=== PATIENT | male | born 1965 | race Caucasian/White ===

== ENCOUNTER 2017-04-27 05:47 | Day surgery (SDC) | payer BC ==
[~2017-04-27] VITALS: Ht 170.2 cm; Wt 84.4 kg
[2017-04-27] MEDS ORDERED: fentaNYL INJECTION 100 MCG/2 ML AMP IVP STA (05:57)
[2017-04-27] MEDS ORDERED: ONDANSETRON 4 MG/2 ML (SDV) Z0FRAN IVP ONE (06:00)
[2017-04-27] MEDS ORDERED: PANTOPRAZOLE 40 MG/10 ML (PROTONIX) VIAL IV ONE (06:00)
--- NOTE | 2017-04-27 06:04 | ED Abdominal Pain ---
General Chief Complaint: Abdominal/GI Problems Stated Complaint: ACUTE UPPER BACK PAIN Source of Information: Patient (INCOL DURHAM K DO) History of Present Illness Time Seen By Provider: 05:50 Initial Comments PT ARRIVES VIA POV FROM HOME C/O SEVERE EPIGASTRIC PAIN THAT RADIATES ALL THE WAY AROUND TO BACK--WOKE HIM UP AT 0400 C/O NAUSEA AND HAS VOMITED X 2 + SWEATS DOESN'T FEEL SHORT OF BREATH, BUT IS HYPERVENTILATING DUE TO PAIN HAD SIMILAR 2 NIGHTS AGO--WOKE HIM UP, THEN WENT AWAY AFTER AN HOUR HAD ROUTINE SCREENING/ [facility] AND EKG DONE LAST WEEK AND WAS ALL NORMAL. (AGUS,NICOL K DO) Allergies and Home Medications Allergies Coded Allergies: Penicillins (Verified Allergy, Unknown, 04/27/17) Home Medications No Active Prescriptions or Reported Meds Review of Systems Constitutional: see HPI, diaphoresis Respiratory: See HPI Cardiovascular: See HPI Gastrointestinal: See HPI Genitourinary: No Symptoms Reported Musculoskeletal: see HPI Skin: no symptoms reported Psychiatric/Neurological: No Symptoms Reported Endocrine: No Symptoms Reported Hematologic/Lymphatic: No Symptoms Reported (AGUSNICOL K DO) Past Chmqgge-Dbamos-Njgdnm Hx Patient Social History Alcohol Use: Denies Use Recreational Drug Use: No Smoking Status: Never a Smoker Recent Foreign Travel: No Contact w/Someone Who Travel: No (AGUS,NICOL K DO) Surgeries HX Surgeries: Yes Surgeries: Appendectomy (AGUS,NICOL K DO) Respiratory Hx Respiratory Disorders: No (AGUS,NICOL K DO) Cardiovascular Hx Cardiac Disorders: No (AGUS,NICOL K DO) Neurological Hx Neurological Disorders: No (AGUS,NICOL K DO) Genitourinary Hx Genitourinary Disorders: No (AGUS,NICOL K DO) Gastrointestinal Hx Gastrointestinal Disorders: Yes Gastrointestinal Disorders: Diverticulosis (AGUS,NICOL K DO) Musculoskeletal Hx Musculoskeletal Disorders: No (AGUS,NICOL K DO) Endocrine Hx Endocrine Disorders: No (AGUS,NICOL K DO) HEENT HX ENT Disorders: No (AGUS,NICOL K DO) Cancer Hx Cancer: No (AGUS,NICOL K DO) Psychosocial Hx Psychiatric Problems: No (AGUS,NICOL K DO) Integumentary HX Skin/Integumentary Disorder: No (AGUS,NICOL K DO) Blood Transfusions Hx Blood Disorders: No (AGUS,NICOL K DO) Physical Exam Vital Signs VS - Last 72 Hours, by Label 04/27/17 04/27/17 05:57 06:27 Temp 97.8 Pulse 70 62 Resp 30 14 B/P (MAP) 180/114 178/103 Pulse Ox 100 100 O2 Delivery Room Air (GAVIN MULLIGAN MD) Vital Signs Capillary Refill : (NICOL DURHAM DO) General Appearance: mild distress (HYPERVENTILATING, LOOKS UNCOMFORTABLE-- RESTLESS, SOMEWHAT ANXIOUS DUE TO PAIN), other Respiratory: normal breath sounds, no respiratory distress, no accessory muscle use Cardiovascular: normal peripheral pulses, regular rate, rhythm, no edema, no JVD, no murmur Gastrointestinal: normal bowel sounds, soft, no organomegaly, no pulsatile mass , tenderness (MILD EPIGASTRIC TENDERNESS) Neurologic/Psychiatric: clinician oncology II-XII nml as tested, no motor/sensory deficits, alert, oriented x 3 Skin: normal color, warm/dry (NICOL DURHAM DO) Progress/Results/Core Measures Results/Orders Lab Results Laboratory Tests Test 04/27/17 06:00 04/27/17 06:17 Range/Units White Blood Count 5.9 4.3-11.0 10^3/uL Red Blood Count 5.16 4.35-5.85 10^6/uL Hemoglobin 16.1 13.3-17.7 G/DL Hematocrit 46 40-54 % Mean Corpuscular Volume 88 80-99 FL Mean Corpuscular Hemoglobin 31 25-34 PG Mean Corpuscular Hemoglobin Concent 35 32-36 G/DL Red Cell Distribution Width 12.6 10.0-14.5 % Platelet Count 231 130-400 10^3/uL Mean Platelet Volume 11.4 H 7.4-10.4 FL Neutrophils (%) (Auto) 43 42-75 % Lymphocytes (%) (Auto) 43 12-44 % Monocytes (%) (Auto) 9 0-12 % Eosinophils (%) (Auto) 4 0-10 % Basophils (%) (Auto) 1 0-10 % Neutrophils # (Auto) 2.5 1.8-7.8 X 10^3 Lymphocytes # (Auto) 2.5 1.0-4.0 X 10^3 Monocytes # (Auto) 0.5 0.0-1.0 X 10^3 Eosinophils # (Auto) 0.3 0.0-0.3 10^3/uL Basophils # (Auto) 0.1 0.0-0.1 10^3/uL Prothrombin Time 12.5 12.2-14.7 SEC INR Comment 1.0 0.8-1.4 Activated Partial Thromboplast Time 25 24-35 SEC Sodium Level 144 135-145 MMOL/L Potassium Level 3.7 3.6-5.0 MMOL/L Chloride Level 109 H 98-107 MMOL/L Carbon Dioxide Level 23 21-32 MMOL/L Anion Gap 12 5-14 MMOL/L Blood Urea Nitrogen 14 7-18 MG/DL Creatinine 1.24 0.60-1.30 MG/DL Estimat Glomerular Filtration Rate > 60 BUN/Creatinine Ratio 11 Glucose Level 154 H 70-105 MG/DL Calcium Level 9.7 8.5-10.1 MG/DL Magnesium Level 2.5 H 1.8-2.4 MG/DL Total Bilirubin 0.3 0.1-1.0 MG/DL Aspartate Amino Transf (AST/SGOT) 23 5-34 U/L Alanine Aminotransferase (ALT/SGPT) 55 0-55 U/L Alkaline Phosphatase 44 40-136 U/L Total Creatine Kinase 73 30-200 U/L Creatine Kinase MB 1.1 <6.6 NG/ML Troponin I < 0.30 <0.30 NG/ML B-Type Natriuretic Peptide < 10.0 <100.0 PG/ML Total Protein 7.7 6.4-8.2 G/DL Albumin 4.2 3.2-4.5 G/DL Amylase Level 54 25-125 U/L Lipase 26 8-78 U/L Urine Color YELLOW Urine Clarity CLEAR Urine pH 6 5-9 Urine Specific [place] 1.025 H 1.016-1.022 Urine Protein 2+ H NEGATIVE Urine Glucose (UA) 1+ H NEGATIVE Urine Ketones 1+ H NEGATIVE Urine Nitrite NEGATIVE NEGATIVE Urine Bilirubin NEGATIVE NEGATIVE Urine Urobilinogen NORMAL NORMAL MG/DL Urine Leukocyte Esterase NEGATIVE NEGATIVE Urine RBC (Auto) NEGATIVE NEGATIVE Urine RBC NONE /HPF Urine WBC NONE /HPF Urine Squamous Epithelial Cells NONE /HPF Urine Crystals NONE /LPF Urine Bacteria NEGATIVE /HPF Urine Casts NONE /LPF Urine Hyaline Casts RARE /LPF Urine Mucus SMALL H /LPF Urine Culture Indicated NO (BRUEGGEMANN,GAVIN T MD) My Orders Orders - GAVIN MULLIGAN MD Fentanyl Injection (Sublimaze Injection (04/27/17 06:15) Ns Iv 1000 Ml (Sodium Chloride 0.9%) (04/27/17 06:17) Us Gallbladder [id number] (04/27/17 06:33) (GAVIN MULLIGAN MD) Medications Given in ED Current Medications Medications Dose Ordered Sig/Sebastien Route Start Time Stop Time Status Last Admin Dose Admin Fentanyl Citrate 100 mcg ONCE ONCE IVP 04/27/17 06:15 04/27/17 06:16 DC 04/27/17 06:21 100 MCG Ondansetron HCl 4 mg ONCE ONCE IVP 04/27/17 06:00 04/27/17 06:01 DC 04/27/17 06:03 4 MG Pantoprazole 40 mg ONCE ONCE IV 04/27/17 06:00 04/27/17 06:01 DC 04/27/17 06:03 40 MG Sodium Chloride 1,000 ml @ 0 mls/hr Q0M ONCE IV 04/27/17 06:17 04/27/17 06:18 DC 04/27/17 06:21 0 MLS/HR (GAVIN MULLIGAN MD) Vital Signs/I&O Vital Sign - Last 12Hours 04/27/17 04/27/17 05:57 06:27 Temp 97.8 Pulse 70 62 Resp 30 14 B/P (MAP) 180/114 178/103 Pulse Ox 100 100 O2 Delivery Room Air (GAVIN MULLIGAN MD) Progress Note : Progress Note 0600--CARE TURNED OVER TO DR. MULLIGAN, ALL STUDIES PENDING (NICOL DURHAM DO) Progress Note #1: Time: 06:15 Progress Note Care of this patient was assumed from Dr. Durham. Patient was re-examined. Patient is in moderate distress from pain. He experienced modest reduction in pain with his initial dose of fentanyl. An additional dose of fentanyl has been ordered. Patient also received Zofran and Pepcid. Patient reports his pain is more lateralized to the right upper quadrant after receiving fentanyl. On reexamination he has clear breath sounds. He has tenderness with positive Conway sign in the right upper quadrant. UA has been provided. If urine is clear of blood, ultrasound will be ordered. If blood is found in the urine, CT for stone search will be obtained. Differential diagnosis at this time includes but is not limited to biliary colic, ureteral stone, duodenal ulcer, etc. Patient reports his last meal of solid food was stirfry at 23:00. He has had water as recently as one hour prior to presentation. Patient also reports he had a similar episode of brief less intense pain a couple of days ago that also woken from sleep. Progress Note #2: Time: Progress Note Pain is well controlled at 12/08. Patient is now in US. (GAVIN MULLIGAN MD) ECG Initial ECG Impression Time: 05:54 Initial ECG Rate: 67 Initial ECG Rhythm: Normal Sinus Initial ECG Comparisson: No Previous ECG Available (NICOL DURHAM DO) Diagnostic Imaging Diagonstic Imaging: Xray Plain Films/CT/US/NM/MRI: chest Comments Chest x-ray viewed by me and report reviewed. No acute abnormalities appreciated. Diagonstic Imaging: Ultrasound Plain Films/CT/US/NM/MRI: abdomen Comments NAME: RIZWANA AU [facility] REC#: [id number] PT STATUS: REG ER : 1965 PHYSICIAN: GAVIN MULLIGAN MD ADMIT DATE: 04/27/17/ER Draft Date of Exam:04/27/17 US GALLBLADDER [id number] PROCEDURE: US Gallbladder. TECHNIQUE: Multiple real-time grayscale images were obtained over the right upper quadrant in various projections. INDICATION: Right upper quadrant pain The liver parenchyma is homogenous with normal echotexture. There is sludge layering in the dependent portion of the gallbladder. Gallbladder wall is not thickened. Common duct is not dilated. Pancreas is obscured by bowel gas. Right kidney appears normal. There is no ascites. IMPRESSION: Patient has a large amount of sludge present in the gallbladder. Dictated on workstation # [id number] Dict: 04/27/17 0749 Trans: 04/27/17 0751 [facility] [id number] Interpreted by: WENDY PATHAK (GAVIN MULLIGAN MD) Departure Communication Time/Spoke to Admitting Phy: 07:25 Communication Case reviewed with Dr. Rivas. There were sludge and stones layered in the gallbladder with sludge in the neck per industrial safety and health technician's report. Dr. Rivas would like to work the patient into the OR schedule for laparoscopic cholecystectomy. We are to hold him in the emergency room until the surgical crew takes him to outpatient surgery. (GAVIN MULLIGAN MD) Impression Impression: Primary Impression: Cholelithiasis Qualified Codes: K80.21 - Calculus of gallbladder without cholecystitis with obstruction Additional Impression: Right upper quadrant pain Disposition: ADMITTED INPATIENT Condition: Improved Departure-Patient Inst. Decision time for Depature: 07:20 (GAVIN MULLIGAN MD) Referrals: CHELSEA RIVAS MD (PCP) Primary Care Physician Scripts No Active Prescriptions or Reported Meds NICOL DURHAM DO April 27, 2017 06:04 GAVIN MULLIGAN MD April 27, 2017 06:23
[2017-04-27 06:05] LABS: BASOPHILS # (AUTO) 0.1 10^3/uL (0.0-0.1); BASOPHILS % (AUTO) 1 % (0-10); EOSINOPHILS # (AUTO) 0.3 10^3/uL (0.0-0.3); EOSINOPHILS % (AUTO) 4 % (0-10); LYMPHOCYTES # (AUTO) 2.5 X 10^3 (1.0-4.0); LYMPHOCYTES % (AUTO) 43 % (12-44); MEAN CORPUSCULAR HEMOGLOBIN 31 PG (25-34); MEAN CORPUSCULAR HGB CONC 35 G/DL (32-36); MEAN CORPUSCULAR VOLUME 88 FL (80-99); MEAN PLATELET VOLUME 11.4 FL (7.4-10.4); MONOCYTES # (AUTO) 0.5 X 10^3 (0.0-1.0); MONOCYTES % (AUTO) 9 % (0-12); NEUTROPHILS # (AUTO) 2.5 X 10^3 (1.8-7.8); NEUTROPHILS % (AUTO) 43 % (42-75); PLATELET COUNT 231 10^3/uL (130-400); RED BLOOD COUNT 5.16 10^6/uL (4.35-5.85); RED CELL DISTRIBUTION WIDTH 12.6 % (10.0-14.5); WHITE BLOOD COUNT 5.9 10^3/uL (4.3-11.0)
[2017-04-27] MEDS ORDERED: fentaNYL INJECTION 100 MCG/2 ML AMP IVP ONE (06:15)
[2017-04-27] MEDS ORDERED: NS IV 1000 ML 1,000 ML IV ONE (06:17)
[2017-04-27 06:18] LABS: PROTHROMBIN TIME PATIENT 12.5 SEC (12.2-14.7)
[2017-04-27 06:22] LABS: BILIRUBIN,URINE NEGATIVE (NEGATIVE); KETONES,URINE 1+ (NEGATIVE); LEUKOCYTE ESTERASE ,URINE NEGATIVE (NEGATIVE); NITRITE,URINE NEGATIVE (NEGATIVE); PH,URINE 6 (5-9); PROTEIN,URINE 2+ (NEGATIVE); UROBILINOGEN,URINE NORMAL (NORMAL)
[2017-04-27 06:29] LABS: HYALINE CASTS, URINE RARE /LPF
--- NOTE | 2017-04-27 06:32 | Diagnostic Imaging Report ---
INDICATION: Epigastric pain. Portable chest 6:08 AM FINDINGS: Heart size and pulmonary vascularity are normal. Lungs are clear. There are no effusions or pneumothoraces. IMPRESSION: Negative chest. Dictated by: Dictated on workstation # [id number]
[2017-04-27 06:33] LABS: ALANINE AMINOTRANSFERASE 55 U/L (0-55); ALBUMIN 4.2 G/DL (3.2-4.5); AMYLASE 54 U/L (25-125); ANION GAP 12 MMOL/L (5-14); ASPARTATE AMINO TRANSFERASE 23 U/L (5-34); BILIRUBIN,TOTAL 0.3 MG/DL (0.1-1.0); BLOOD UREA NITROGEN 14 MG/DL (7-18); BUN/CREATININE RATIO 11; CALCIUM 9.7 MG/DL (8.5-10.1); CARBON DIOXIDE 23 MMOL/L (21-32); CHLORIDE 109 MMOL/L (98-107); CREATINE KINASE 73 U/L (30-200); CREATININE SERUM 1.24 MG/DL (0.60-1.30); GFR ESTIMATED > 60; GLUCOSE 154 MG/DL (70-105); LIPASE 26 U/L (8-78); MAGNESIUM 2.5 MG/DL (1.8-2.4); POTASSIUM 3.7 MMOL/L (3.6-5.0); SODIUM 144 MMOL/L (135-145); TOTAL PROTEIN 7.7 G/DL (6.4-8.2)
[2017-04-27 06:40] LABS: TROPONIN I < 0.30 NG/ML (<0.30)
--- NOTE | 2017-04-27 07:52 | Diagnostic Imaging Report ---
PROCEDURE: US Gallbladder. TECHNIQUE: Multiple real-time grayscale images were obtained over the right upper quadrant in various projections. INDICATION: Right upper quadrant pain The liver parenchyma is homogenous with normal echotexture. There is sludge layering in the dependent portion of the gallbladder. Gallbladder wall is not thickened. Common duct is not dilated. Pancreas is obscured by bowel gas. Right kidney appears normal. There is no ascites. IMPRESSION: Patient has a large amount of sludge present in the gallbladder. Dictated by: Dictated on workstation # [id number]
[2017-04-27] MEDS ORDERED: proPOfol 200 MG/20 ML (DIPRIVAN) VIAL IV ONE (08:25)
[2017-04-27] MEDS ORDERED: LIDOCAINE PF 2% 5 ML (XYLOCAINE) VIAL ONE (08:25)
[2017-04-27] MEDS ORDERED: SEVOFLURANE (ULTANE) 15 ML INHAL SOLN ONE ×4 (08:25→11:18)
[2017-04-27] MEDS ORDERED: fentaNYL INJECTION 100 MCG/2 ML AMP ONE ×2 (08:25→11:17)
[2017-04-27] MEDS ORDERED: LACTATED RINGERS 1,000 ML IV ONE ×2 (08:25→11:07)
[2017-04-27] MEDS ORDERED: MIDAZOLAM 2 MG/2 ML (VERSED) VIAL ONE (08:27)
[2017-04-27] MEDS ORDERED: ONDANSETRON 4 MG/2 ML (SDV) Z0FRAN ONE ×2 (08:30→11:29)
[2017-04-27] MEDS ORDERED: BUP/EPI 0.25% 1:200,000 (MARCAINE) 30 ML VIAL ONE ×2 (08:35→09:23)
--- NOTE | 2017-04-27 08:44 | Progress Note-Pre Operative ---
Pre-Operative Progress Note H&P Reviewed The H&P was reviewed, patient examined and no changes noted. Date H&P Reviewed: April 27, 2017 Time H&P Reviewed: 08:44 Pre-Operative Diagnosis: Acute cholecystitis CHELSEA RIVAS MD April 27, 2017 8:44 am
--- NOTE | 2017-04-27 08:44 | History & Physicial ---
History of Present Illness History of Present Illness Reason for visit/HPI RUQ pain radiating to the back since 4 am . US shows sludge in the GB and evidence of early acute cholecystitis Date of Admission I consulted on this patient on 04/27/17 08:38 Attending Physician Chelsea Rivas MD Admitting Physician Leanne Ghosh,Dnp Consult Allergies and Home Medications Allergies Coded Allergies: Penicillins (Verified Allergy, Unknown, 04/27/17) Home Medications No Active Prescriptions or Reported Meds Past Aadujbl-Nanrpo-Konmba Hx Patient Social History Marrital Status: Employed/Student: self-employed Alcohol Use: Denies Use Recreational Drug Use: No Smoking Status: Never a Smoker Recent Foreign Travel: No Contact w/other who traveled: No Recent Infectious Disease Expo: No Surgeries HX Surgeries: Yes Surgeries: Appendectomy Respiratory Hx Respiratory Disorders: No Cardiovascular Hx Cardiovascular Disorders: No Neurological Hx Neurological Disorders: No Genitourinary Hx Genitourinary Disorders: No Gastrointestinal Hx Gastrointestinal Disorders: Yes Gastrointestinal Disorders: Diverticulosis Musculoskeletal Hx Musculoskeletal Disorders: No Endocrine Hx Endocrine Disorders: No HEENT HX ENT Disorders: No Cancer Hx Cancer: No Psychosocial Hx Psychiatric Problems: No Integumentary HX Skin/Integumentary Disorder: No Blood Transfusions Hx Blood Disorders: No Constitutional: malaise EENTM: no symptoms reported Respiratory: no symptoms reported Cardiovascular: other Gastrointestinal: RUQ, abdominal pain (RUQ) Genitourinary: no symptoms reported Musculoskeletal: no symptoms reported Skin: no symptoms reported Psychiatric/Neurological: No Symptoms Reported Physical Exam Vital Signs Vital Sign - Last 12Hours 04/27/17 04/27/17 05:57 06:27 Temp 97.8 Pulse 70 Resp 30 B/P (MAP) 180/114 Pulse Ox 100 O2 Delivery Room Air Capillary Refill : Less Than 3 Seconds General Appearance: No Apparent Distress HEENT: TMs Normal Neck: Normal Inspection Respiratory: Lungs Clear Cardiovascular: Regular Rate, Rhythm Gastrointestinal: Tenderness Rectal: Deferred Extremity: Normal Capillary Refill Neurologic/Psychiatric: Alert, Oriented x3 Skin: Warm/Dry Comments RLQ scar with no hernia. Assessment/Plan Assessment and Plan Gallbladder with sludge.Robotic assisted cholecystectomy with cholangiogram offered. Expected recovery, complications of bile leak and wound infection reviewed. Willing to proceed Problems: Admission Diagnosis Gallstones with acute cholecystitis CHELSEA RIVAS MD April 27, 2017 8:43 am
[2017-04-27] MEDS ORDERED: ceFAZolin 2 GM/50 ML NS 50 ML IV ONE (08:45)
[2017-04-27] MEDS ORDERED: metroNIDAZOLE 500MG/100ML IVPB 100 ML IV ONE (08:45)
[2017-04-27 09:08] VITALS: BP 166/99
[2017-04-27] MEDS ORDERED: PHENYLEPHRINE 100 MCG/ML 10 ML (ANESTHESIA) SYR ONE (10:10)
[2017-04-27] MEDS: LACTATED RINGERS 1,000 ML IV PRN ×3 (10:45→13:32)
[2017-04-27] MEDS ORDERED: GLYCOPYRROLATE 0.2 MG/ML (ROBINUL) 2 ML VIAL ONE (11:07)
[2017-04-27] MEDS ORDERED: NEOSTIGMINE (BLOXIVERZ ) 1 MG/1ML 10 ML VIAL ONE (11:07)
--- NOTE | 2017-04-27 11:24 | Progress Note-Post Operative ---
Post-Operative Progess Note Surgeon (s)/Managed Security Sales Consultant (s) Surgeon CHELSEA RIVAS MD Managed Security Sales Consultant: not applicable Pre-Operative Diagnosis Acute cholecystitis Post-Operative Diagnosis same Procedure & Operative Findings Date of Procedure 04/27/17 Procedure Performed/Findings robotic-assisted cholecystectomy Anesthesia Type Gen. Estimated Blood Loss Estimated blood loss (mL): 1 50 mL Specimens/Packing Specimens Removed gallbladder CHELSEA RIVAS MD April 27, 2017 11:24 am
[2017-04-27] MEDS ORDERED: OXYC-197 PO (11:25)
--- NOTE | 2017-04-27 11:26 | Discharge Inst-Simple/Standard ---
Discharge Inst-Standard Discharge Medications New, Converted or Re-Newed RX: RX on Chart Patient Instructions/Follow Up Plan of Care/Instructions/FU: incentive spirometry. Dressings off in 48 hours. Please administer 1 g of Ancef at 1 o'clock prior to discharge Activity as Tolerated: Yes Discharge Diet: No Restrictions CHELSEA RIVAS MD April 27, 2017 11:26 am
[2017-04-27] MEDS ORDERED: morphine INJ 10 MG/ML 1ML (SYR OR VIAL) ONE (11:29)
[2017-04-27] MEDS ORDERED: MEPERIDINE (DEMEROL) INJ 50 MG/ML ONE (11:29)
[2017-04-27] MEDS ORDERED: HYDROmorphone (DILAUDID) 2 MG/ML VIAL ONE (11:29)
[2017-04-27] MEDS ORDERED: fentaNYL INJECTION 100 MCG/2 ML AMP IVP PRN (11:45)
[2017-04-27] MEDS ORDERED: ONDANSETRON 4 MG/2 ML (SDV) Z0FRAN IVP PRN (11:45)
[2017-04-27] MEDS: morphine INJ 10 MG/ML 1ML (SYR OR VIAL) IVP PRN ×2 (11:53→11:57)
[2017-04-27] MEDS: HYDROmorphone (DILAUDID) 2 MG/ML VIAL IVP PRN ×3 (12:04→12:21)
[2017-04-27 12:45] VITALS: BP 169/101
[2017-04-27] MEDS ORDERED: ceFAZolin 1,000 MG (ANCEF) VIAL ONE (12:48)
[2017-04-27] MEDS ORDERED: oxyCODONE/APAP 5/325MG (PERCOCET 5) TABLET ONE (12:48)
[2017-04-27] MEDS ORDERED: NS (IVPB) 50 ML ONE (12:48)
[2017-04-27] MEDS ORDERED: ceFAZolin INJECTION 1,000 MG in NS (IVPB) 50 ML IV ONE (13:00)
[2017-04-27] MEDS ORDERED: oxyCODONE/APAP 5/325MG (PERCOCET 5) TABLET PO ONE (13:00)
[2017-04-27 13:15] VITALS: BP 162/116
[2017-04-27 13:45] VITALS: BP 159/108
[2017-04-27] MEDS ORDERED: LABETALOL HCL 20 MG/4 ML VIAL IV ONE ×3 (13:45→14:45)
[2017-04-27 15:25] VITALS: BP 159/108
--- NOTE | 2017-04-27 19:18 | OPERATIVE REPORT ---
DATE OF SERVICE: 04/27/2017 PREOPERATIVE DIAGNOSES: 1. Sludge in the gallbladder. 2. Acute cholecystitis. POSTOPERATIVE DIAGNOSES: 1. Sludge in the gallbladder. 2. Acute cholecystitis. OPERATION: Robotic-assisted cholecystectomy. ANESTHESIA: General. 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 He was offered prompt cholecystectomy using minimally invasive technique with robotic assistance. Informed consent was obtained and after reviewing the operative details and complications of wound infection, bile leak and possible requirement for postoperative ERCP to address choledocholithiasis. DESCRIPTION OF PROCEDURE: He was placed supine on the operating table and general anesthesia induced using an endotracheal tube. Ancef 2 grams and 500 mg of Flagyl were administered intravenously as prophylaxis against wound infection. Sequential compression devices were placed around his legs to minimize the risk of venous thrombosis. Abdomen was prepped and draped in the usual sterile manner. A supraumbilical incision was made and pneumoperitoneum established using a Veress needle. Intraabdominal pressure was maintained at 15 mmHg. A 12 mm trocar was placed and the abdomen was visualized using the 3 dimensional, high definition laparoscope associated with da Learner[employer] system. Under direct view, I placed an 8 mm cannula over each side of the abdomen, followed by a 5 mm trocar over the left subcostal region. The robotic system was docked in place after placing the patient in reverse. He was then turned into reverse Trendelenburg position with the right side tilted up. The robotic system was then docked in place. Laparoscopic survey confirmed an acutely inflamed gallbladder that was elongated. The fundus was retracted using a 5 mm grasper introduced via the left upper quadrant and inflamed, edematous tissue around the neck of the gallbladder incised using the hook cautery. By a combination of blunt dissection and hook cautery, cystic duct was isolated. It was controlled between locking clips. To facilitate dissection, the gallbladder was decompressed at the fundus and bile along with small stones suctioned out. Due to the friable nature of the cystic duct, it was felt reasonable to avoid cholangiogram. Cholecystectomy was then completed using the hook cautery. Subhepatic space was then irrigated with the saline and the gallbladder placed in an Endo Catch bag to be removed via the supraumbilical trocar site. The fascia over this incision was closed using #1 Vicryl, using an Endo Close device under direct laparoscopic view. Skin incisions were closed using 4-0 Vicryl in a subcuticular fashion. Marcaine 25% with epinephrine was infiltrated along the incisions, both preemptively and at the conclusion of the operation. He tolerated the procedure well, was extubated in the operating room and taken to the recovery room in stable condition. [place], sponges and instruments were correct at the end of the operation. Job ID: [id number] DocumentID: [id number] Dictated Date: 04/27/2017 11:23:53 Cake Cutter Machine Date: 04/27/2017 19:17:16 Dictated By: CHELSEA RIVAS MD MTDD
== END 2017-04-27 15:25 | disposition home or self-care (01) ==
LOC: EDUNIT# 05:47 → ER 05:50 → SDC 08:10
PROVIDERS: ATTEND Surgery
DX: K81.2 Acute cholecystitis with chronic cholecystitis (principal); I10 Essential (primary) hypertension
CPT/HCPCS: 36415; 71010; 76705; 80053; 81000; 82150; 82550; 82553; 83690; 83735; 83880; 84484; 85025; 85610; 85730; 87081; 93005; 93041; 94664